=== PATIENT | female | born 1980 | race Caucasian/White ===

== ENCOUNTER → 2016-10-26 | Outpatient (CLI) | payer BC ==
--- NOTE | ~2016-10-26 | CR127 ---
[facility] A Service of [facility] & [facility] RADIOLOGY TEXT RESULTS PATIENT: NAIN ORTEGA LOCATION: [facility] : [birth year] UNIT #: [id number] AGE: [address]: Justin Lozoya MD SEX: F ORDER DR: [id number] [facility] [address] [place], [place] [address] [id number] O MR#: [id number] Acc #: [id number] NAME: NAIN ORTEGA : 1980 SEX: F STUDY DATE/TIME: 10/26/2016 15:45 UNIT: [facility] ROOM: STUDY DESCRIPTION: CR Foot Complete Min 3 View Rt Attending Physician: Justin Lozoya M.D. Referring Physician: Justin Lozoya M.D. Ordering Physician: Justin Lozoya M.D. Primary Care Physician: Justin Lozoya M.D. MEDICAL IMAGING REPORT This report is preliminary unless electronic signature is present EXAM Right foot 10/26/2016, [facility]. HISTORY 36-year-old female with persistent pain, right fifth metatarsal area. Pain approximately 3 months duration. FINDINGS 3 views of the right foot demonstrate normal mineralization with intact cortex throughout. Specific attention to the fifth metatarsal demonstrates no abnormality. Small joints are preserved, and soft tissues are normal. IMPRESSION Negative right foot. Dictated by... Pawel Denise M.D. THIS IS AN ELECTRONICALLY VERIFIED REPORT Pawel Denise M.D. at 10/27/2016 3:35 PM Alix TD: 10/27/2016 14:40 JOB #: [id number] MEDICAL IMAGING REPORT Page 1 of 1 COPY
== END | disposition home or self-care (01) ==
LOC: CRAD 13:16
DX: M79.671 Pain in right foot (principal)
CPT/HCPCS: 73630